=== PATIENT | male | born 1985 | race American Indian/Alaskan Native ===

== ENCOUNTER 2016-12-13 21:05 | Emergency (ER) | payer SELFPAY ==
[2016-12-13 21:52] VITALS: BP 120/71
== END 2016-12-14 07:11 | disposition left against medical advice (07) ==
LOC: ED 21:05
DX: L23.7 Allergic contact dermatitis due to plants, except food (principal); Z53.21 Procedure and treatment not carried out due to patient leaving prior to being seen by health care provider